=== PATIENT | male | born 1950 | race Caucasian/White ===

== ENCOUNTER 2020-05-30 09:31 | Emergency (ER) | payer MEDICARE, OTHER ==
[~2020-05-30] VITALS: Ht 172.7 cm; Wt 95.2 kg
== END 2020-05-30 10:21 | disposition home or self-care (01) ==
LOC: ER 09:31
DX: M65.4 Radial styloid tenosynovitis [de Quervain] (principal)
CPT/HCPCS: 73110; 99283-25